=== PATIENT | male | born 1945 | race Caucasian/White ===

== ENCOUNTER 2016-10-27 01:52 | Emergency (ER) | payer BC, OTHER ==
[~2016-10-27] VITALS: Ht 185.4 cm; Wt 76.0 kg
[~2016-10-27 01:52] MED LIST: ANDRODERM PO; ANDROGEL2.5 G1 TD; ATENOLOL25 MG PO; BISAC-EVAC10 MG PR; CANASA1000 MG PR; D-VERT25 MG PO; FLEET ENEMA-AD118 ML PR; FOSAMAX70 MG PO; K-DUR20 MEQ PO; MECLIZINE HCL25 MG PO; MILK OF MAGN PO; MORPHINE SULFAT15 MG PO; OxyCODONE; OxyCONTIN PO; SENNA LAX8.6 MG PO; SULFASALAZINE500 MG PO; SULFAZINE500 MG PO; SYNTHROID50 MCG PO; TRAMADOL HCL50 MG PO; TYLENOL REGULA325 MG PO; ZOCOR20 MG PO; ZOCOR40 MG PO; predniSONE PO
[2016-10-27 02:48] LABS: HEMATOCRIT 35.4 % (38.0-50.0); MCHC 32.5 G/DL (30.0-36.0); MCV 86.3 FL (86-99); MEAN PLAT.VOLUME 9.2 uM^3 (9.0-12.4); PLATELET COUNT 325 K/uL (156-360); RBC DIS.WIDTH-CV 18.5 % (11.8-14.6); RBC DIS.WIDTH-SD 56.9 % (39-53); WHITE BLOOD COUNT 8.8 K/uL (4.1-10.2)
[2016-10-27 02:49] LABS: EOSINOPHIL COUNT 0.2 K/uL (0-0.3); IMMATURE GRANULOCYTE (%) 0.2 % (0.0-0.7); IMMATURE GRANULOCYTE COUNT 0.2 K/uL; LYMPHOCYTE COUNT 1.6 K/uL (1.0-2.8); MONOCYTE (%) 7.2 % (3-12); MONOCYTE COUNT 0.6 K/uL (0-0.8); NEUTROPHIL (%) 72.1 % (45-76); NEUTROPHIL COUNT 6.3 K/uL (1.8-6.4)
[2016-10-27 03:03] LABS: CHLORIDE 109 mEq/L (99-109); POTASSIUM 3.8 mEq/L (3.7-5.4); SODIUM 138 mEq/L (136-147)
[2016-10-27 03:05] LABS: GLUCOSE 114 mg/dL (70-99)
[2016-10-27 03:06] LABS: ANION GAP 13 MEQ/L (2-14)
[2016-10-27 03:07] LABS: TOTAL BILIRUBIN 0.7 mg/dL (0.0-1.0)
[2016-10-27 03:08] LABS: ALKALINE PHOSPHATASE 85 IU/L (3-129)
[2016-10-27 03:09] LABS: GFR ESTIMATE (CALCULATED) > 59 mL/min/
[2016-10-27 03:10] LABS: UREA NITROGEN (BUN) 12 mg/dL (9-23)
[2016-10-27 03:12] LABS: LIPASE 52 U/L (1.0-51.0); TROP-I INTERPRETATION NEGATIVE; TROPONIN-I < 0.01 ng/mL (0.0-0.30)
[2016-10-27] MEDS ORDERED: BENTYL10 MG PO (04:48)
[2016-10-27 05:42] VITALS: BP 129/71
== END 2016-10-27 06:11 | disposition home or self-care (01) ==
LOC: EME 01:52
PROVIDERS: Emergency Medicine
DX: K52.9 Noninfective gastroenteritis and colitis, unspecified (principal); R10.31 Right lower quadrant pain; K59.00 Constipation, unspecified; E78.5 Hyperlipidemia, unspecified; I10 Essential (primary) hypertension; K51.90 Ulcerative colitis, unspecified, without complications
CPT/HCPCS: 74177; 80053; 81003; 83605; 83690; 84484; 85025; 87040; 93005; 99281; 99284; J7030

== ENCOUNTER 2016-11-27 09:36 | Day surgery (SDC) | payer OTHER, BC ==
[~2016-11-27] VITALS: Ht 185.4 cm; Wt 79.4 kg
[~2016-11-27 09:36] MED LIST changes: +BENTYL10 MG PO; +FOLIC ACID1 MG PO; +VITAMIN D31000 UNI2 PO
== END 2016-11-27 18:30 | disposition short-term general hospital (02) ==
LOC: CATH 09:36 → 2SOUTH 12:30
DX: I25.10 Atherosclerotic heart disease of native coronary artery without angina pectoris (principal); I25.5 Ischemic cardiomyopathy; R07.9 Chest pain, unspecified; R94.39 Abnormal result of other cardiovascular function study; I34.0 Nonrheumatic mitral (valve) insufficiency; E78.5 Hyperlipidemia, unspecified; I10 Essential (primary) hypertension
CPT/HCPCS: 85347; C1769; C1887; G0378; J1644; J1815; J2250; J3010; J7050